=== PATIENT | male | born 1995 | race African-American/Black ===

== ENCOUNTER → 2024-02-08 | Emergency (ER) | payer OTHER ==
[~2024-02-08] MED LIST: ACETAMINOPHEN 500 MG TAB ONE
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
--- NOTE | 2024-02-08 15:51 | RAD REPORT ---
EXAM DESCRIPTION: CT - CTFB CLINICAL HISTORY: FACIAL PAIN COMPARISON: No comparisons TECHNIQUE: Axial 2 mm thick images of the face were obtained with sagittal and coronal reconstructio n images. All CT scans are performed using dose optimization technique as appropriate and may include automated exposure control or mA/KV adjustment according to patient size. FINDINGS: Acute left orbital fracture with a blowout fracture involving the lamina papyracea and inf erior orbital rim. There is slight medial deviation of the left medial rectus muscle but no evidence of entrapment. Some of the fat is also herniated into the left ethmoid air cells. No retroconal hemor rhage identified. The mandible is intact. The right orbit is intact. IMPRESSION: Left orbital blow-out fracture involving the medial and inferior orbital wall. No retroc [place] hematoma. Herniation of extraconal fat of the fracture involving the lamina papyracea but no re ctus muscle entrapment.
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
[2024-02-08 17:33] VITALS: BP 118/72; TEMP 97.9; O2SAT 100
== END ==
LOC: ER 14:05
DX: S02.32XA Fracture of orbital floor, left side, initial encounter for closed fracture (principal); Y04.8XXA Assault by other bodily force, initial encounter
CPT/HCPCS: 70450; 70486; 72125; 76377; 99284